=== PATIENT | female | born 2000 | race African-American/Black ===

== ENCOUNTER 2020-09-15 03:00 | Emergency (ER) | payer SELFPAY ==
[~2020-09-15] VITALS: Ht 160 cm; Wt 53.5 kg
[2020-09-15 03:09] VITALS: BP 123/84
--- NOTE | 2020-09-15 03:30 | NUR ---
Patient ambualted to bed 6 with steady gait.
--- NOTE | 2020-09-15 03:35 | NUR ---
Patient wishes to speak to LISA pinon to getting blood work drawn. Patient states,"I'm paying out of pocket so I don't want to pay for something I don't need."
--- NOTE | 2020-09-15 04:17 | NUR ---
PATIENT BIB SELF FOR C/O STERNAL C/P X 3 DAYS. PATIENT STATES BEEN NON COMPLIANT WITH THYROID MEDICATION X 1 MONTH. PATIENT ALSO COMPLAINS OF UTI SYMPTOMS OF BURNING, FREQUENCY. HAS BEEN TAKING AZO FOR THE PASSED 10WEEKS AND STILL HAS SYMPTOMS. AAOX4. PATIENT DENIES, N/V/D. PATIENT ALSO THINKS THAT THE C/P MAY BE RELATED TO COVID SINCE SHE HAS LOST TASTE, AND SMELL. MEDHX: HYPERTHROIDISM, ASTHMA ALLERGIES: CODEINE
[2020-09-15] MEDS ORDERED: NITR100C7 PO (04:59)
--- NOTE | 2020-09-15 05:10 | NUR ---
Patient discharged with v/s stable. Written and verbal after care instructions given and explained. Patient alert, oriented and verbalized understanding of instructions. Ambulatory with steady gait. All questions addressed prior to discharge. ID band removed. Patient advised to follow up with PMD. Rx of Macrobid 100mg capsule given. Patient educated on indication of medication including possible reaction and side effects. Opportunity to ask questions provided and answered.
[2020-09-15 05:13] VITALS: BP 123/84
== END 2020-09-15 05:10 | disposition home or self-care (01) ==
LOC: MED 03:00
DX: U07.1 COVID-19 (principal); N39.0 Urinary tract infection, site not specified; F17.210 Nicotine dependence, cigarettes, uncomplicated; Z88.5 Allergy status to narcotic agent
CPT/HCPCS: 36415; 81002; 81025; 87491; 99283

== ENCOUNTER 2020-09-29 00:55 | Emergency (ER) | payer SELFPAY ==
[~2020-09-29] VITALS: Ht 160 cm; Wt 52.2 kg
[~2020-09-29 00:55] MED LIST: NITR100C7 PO
[2020-09-29 01:11] VITALS: BP 132/86
--- NOTE | 2020-09-29 01:15 | NUR ---
PATIENT REFUSED EKG AT THIS TIME.
--- NOTE | 2020-09-29 01:20 | NUR ---
20 yo f bib self with c/c of racing heart rate. heart rate at this time 86. pt stated she has hyperthyroidism and believes it is related to that. denies pain and discomfort. -n/v/d, -cough, -fever, -chills. pt stated she has a yeast infection and would like to be treated for that. ermd made aware. hx: hyperthyriodism and asthma rx: betablocker allerg: codeine
--- NOTE | 2020-09-29 01:47 | NUR ---
Patient refused xray. ELSIED made aware.
[2020-09-29] MEDS ORDERED: FLUCONAZOLE 100 MG TAB PO ONE (01:50)
[2020-09-29] MEDS ORDERED: FLUC150T PO (01:52)
[2020-09-29 02:18] VITALS: BP 132/86
--- NOTE | 2020-09-29 02:18 | NUR ---
pt left without paperwork.
== END 2020-09-29 02:18 | disposition home or self-care (01) ==
LOC: MED 01:00
DX: R00.2 Palpitations (principal); Z53.21 Procedure and treatment not carried out due to patient leaving prior to being seen by health care provider
CPT/HCPCS: 99283

== ENCOUNTER 2020-11-01 16:21 | Emergency (ER) | payer SELFPAY ==
[~2020-11-01] VITALS: Ht 160 cm; Wt 52.2 kg
[~2020-11-01 16:21] MED LIST changes: +FLUC150T PO
--- NOTE | 2020-11-01 17:15 | NUR ---
Serafin skinner in [facility] - 11/01/20 at 1742 by [id number] NO SHOW.PATIENT LEFT WITHOUT BEING TRIAGED. NO FURTHER CARE PROVIDED FOR PATIENT.
[2020-11-01 17:57] VITALS: BP 115/69
--- NOTE | 2020-11-01 18:04 | NUR ---
Serafin skinner in [facility] - 11/01/20 at 1804 by [facility] SHANKAR
[2020-11-01 19:30] LABS: APPEARANCE,URINE CLEAR (CLEAR); BILIRUBIN,URINE NEGATIVE (NEGATIVE); BLOOD, URINE NEGATIVE (NEGATIVE); COLOR,URINE YELLOW (YELLOW); LEUKOCYTE ESTERASE ,URINE 2+ (NEGATIVE); NITRITE, URINE NEGATIVE (NEGATIVE); UGLUCOSE NEGATIVE (NEGATIVE)
--- NOTE | 2020-11-01 19:30 | NUR ---
PT CALLED IN LOBBY AND OUTSIDE BY DR. LYNN WITH NO ANSWER.
[2020-11-01 19:36] LABS: WBC,URINE 16-25 (MOD) /HPF (0-5)
--- NOTE | 2020-11-01 19:40 | NUR ---
PT CALLED IN LOBBY AND OUTSIDE BY DR. LYNN FOR SECOND TIME WITH NO ANSWER. PATIENT LEFT WITHOUT BEING SEEN BY DR. LYNN. NO FURTHER CARE PROVIDED FOR PATIENT.
[2020-11-03] MEDS ORDERED: FLUCONAZOLE 100 MG TAB ONE (04:54)
== END 2020-11-01 19:40 | disposition left against medical advice (07) ==
LOC: MED 16:21
DX: R11.0 Nausea (principal); R30.9 Painful micturition, unspecified; Z53.21 Procedure and treatment not carried out due to patient leaving prior to being seen by health care provider
CPT/HCPCS: 81001; 81025; 87086; 99281

== ENCOUNTER 2020-11-03 03:12 | Emergency (ER) | payer SELFPAY ==
[~2020-11-03] VITALS: Ht 160 cm; Wt 55.3 kg
--- NOTE | 2020-11-03 03:15 | NUR ---
CALLED PATIENT BACK, NO RESPONSE.
--- NOTE | 2020-11-03 03:24 | NUR ---
CALLED PATIENT BACK FOR TRIAGE ASSESSMENT. NO RESPONSE FROM LOBBY OR PARKING LOT.
[2020-11-03 03:50] VITALS: BP 125/83
[2020-11-03] MEDS ORDERED: FLUC200T PO (04:16)
--- NOTE | 2020-11-03 04:16 | NUR ---
ERMD IN TRIAGE FOR MEDICAL EVALUATION.
[2020-11-03] MEDS ORDERED: FLUCONAZOLE 100 MG TAB PO ONE (04:50)
[2020-11-03 05:00] VITALS: BP 125/83
--- NOTE | 2020-11-03 05:00 | NUR ---
Patient discharged with v/s stable. Written and verbal after care instructions given and explained. Patient verbalized understanding. Ambulatory with steady gait. All questions addressed prior to discharge. Advised to follow up with PMD.
[2020-11-03 09:58] LABS: APPEARANCE,URINE CLEAR (CLEAR); BILIRUBIN,URINE NEGATIVE (NEGATIVE); BLOOD, URINE 2+ (NEGATIVE); COLOR,URINE YELLOW (YELLOW); LEUKOCYTE ESTERASE ,URINE NEGATIVE (NEGATIVE); NITRITE, URINE NEGATIVE (NEGATIVE); UGLUCOSE NEGATIVE (NEGATIVE)
[2020-11-03 10:10] LABS: WBC,URINE 0-5 /HPF (0-5)
== END 2020-11-03 05:00 | disposition home or self-care (01) ==
LOC: MED 03:12
DX: N76.0 Acute vaginitis (principal); B37.3 Candidiasis of vulva and vagina; J45.909 Unspecified asthma, uncomplicated; E07.9 Disorder of thyroid, unspecified; F12.90 Cannabis use, unspecified, uncomplicated; Z79.899 Other long term (current) drug therapy; Z88.5 Allergy status to narcotic agent
CPT/HCPCS: 81001; 81025; 99283